=== PATIENT | female | born 1995 | race Caucasian/White ===

== ENCOUNTER 2022-04-27 10:47 | Outpatient (CLI) | payer BC, SELFPAY ==
--- NOTE | 2022-04-27 11:00 | CRLHL7_ITS ---
For Patients: As a result of the Cures Act, medical imaging exams and procedure reports are released immediately into your electronic medical record. You may view this report before your referring provider. If you have questions, please contact your health care provider. INDICATION: First trimester scan, establish dates. COMPARISON: None. TECHNIQUE: Real-time tsai-scale imaging of the pelvis was performed. FINDINGS: Sonographic imaging demonstrates a single living intrauterine gestation. The embryo demonstrates a regular cardiac rate measuring 157 beats per minute. The embryo`s crown-rump length measurement of 5.4 cm corresponds to a gestational age of 12 weeks 0 days with a sonographic due date of 11/09/2022. There is a normal-appearing yolk sac. There are no gross abnormalities noted within the embryo at this early state of development. The gestational sac has a normal appearance. There is no evidence of a perigestational hemorrhage. The amount of fluid within the sac appears appropriate for gestational age. The cervix is closed. The myometrium appears normal. The ovaries are of normal size. 1.6 cm corpus luteal cyst left ovary. 4.3 cm simple right ovarian cyst. There are no suspicious fluid collections noted in the cul-de-sac. IMPRESSION: Normal first trimester OB ultrasound exam. Gestational age calculated at 12 weeks 0 days with a sonographic due date of 11/09/2022. Dictated by Landry Phan MD @ 04/27/2022 12:03:27 PM (Electronically Signed)
== END 2022-04-27 10:48 | disposition home or self-care (01) ==
LOC: US 10:48
PROVIDERS: PCP Physician Assistant; Visit Provider Physician Assistant
DX: Z34.91 Encounter for supervision of normal pregnancy, unspecified, first trimester (principal); Z36.89 Encounter for other specified antenatal screening
CPT/HCPCS: 76801; 86592; 86703; 86762; 86787; 86803; 86850; 86900; 86901; 87086; 87340; 87491; 87591

== ENCOUNTER 2022-06-28 12:47 | Outpatient (CLI) | payer BC, SELFPAY ==
--- NOTE | 2022-06-28 13:00 | CRLHL7_ITS ---
For Patients: As a result of the Century Cures Act, medical imaging exams and procedure reports are released immediately into your electronic medical record. You may view this report before your referring provider. If you have questions, please contact your health care provider. INDICATION: Evaluate anatomy. COMPARISON: 04/27/2022 TECHNIQUE: Real time tsai scale imaging of the fetus was performed as well as color Doppler analysis of the umbilical vessels. FINDINGS: Sonographic imaging demonstrates a single living intrauterine gestation. Fetus demonstrates a regular cardiac rate of 155 beats per minute. Fetus has a breech position. The placenta lies posteriorly without evidence of placenta previa. The edge of the placenta is located 4.2 cm from the internal cervical os. Amniotic fluid volume appears normal. Single deepest vertical pocket: 5.3 cm. The cervix is closed and measures 3.9 cm in length. The composite ultrasound gestational age is calculated at 20 weeks 6 days with an estimated sonographic due date of 11/09/2022. The estimated weight is 422 grams which lies at the greater than 97th %. The following biometric measurements were obtained: Biparietal diameter: 5.0 cm/21 weeks 0 days 86th% Head circumference: 18.6 cm/21 weeks 0 days 82nd% Abdominal circumference: 17.3 cm/22 weeks 2 days 96th% Femur length: 3.4 cm/20 weeks 4 days 63rd% The HC/AC ratio measures: 1.08 range (1.06-1.25) On anatomic survey, there is a normal appearance of the cerebral ventricles, cavum septi pellucidi, cisterna magna and cerebellum. The nose, lips, and facial profile appear normal. The cervical, thoracic and lumbar spine are well visualized and appear normal. There is a normal four-chamber heart view and the left and right ventricular outflow tracts appear normal. The diaphragm and stomach appear normal. The bladder is normal. Bilateral pelviectasis is present measuring 5.8 millimeters and 6.4 millimeters. There is a normal three-vessel cord and cord insertion site. The four extremities appear normal. IMPRESSION: Sonographic gestational age 20 weeks 6 days and sonographic due date 11/09/2022. Sonographic age 6 days ahead of the clinical age. Estimated weight greater than 97th percentile. Abdominal circumference 96th percentile. Bilateral renal pelviectasis measuring 5.8 and 6.4 millimeters. Follow up in the 3rd trimester recommended. Remainder of the anatomic survey is normal. Maternal right adnexal cyst is present. This measures approximately 7.2 x 4.3 x 4.9 cm Dictated by Landry Phan MD @ 06/29/2022 7:06:15 AM (Electronically Signed)
== END 2022-06-28 12:48 | disposition home or self-care (01) ==
LOC: US 12:48
PROVIDERS: Visit Provider Physician Assistant
DX: Z34.92 Encounter for supervision of normal pregnancy, unspecified, second trimester (principal); Z3A.20 20 weeks gestation of pregnancy
CPT/HCPCS: 76805

== ENCOUNTER 2022-08-23 12:50 | Outpatient (CLI) | payer BC, SELFPAY ==
--- NOTE | 2022-08-23 13:00 | CRLHL7_ITS ---
For Patients: As a result of the Century Cures Act, medical imaging exams and procedure reports are released immediately into your electronic medical record. You may view this report before your referring provider. If you have questions, please contact your health care provider. INDICATION: Follow-up renal pelviectasis COMPARISON: 06/28/2022 TECHNIQUE: Real time tsai scale imaging of the fetus was performed. FINDINGS: Sonographic imaging demonstrates a single living intrauterine gestation. Fetus demonstrates a regular cardiac rate of 138 beats per minute. Fetus has a vertex position. The placenta lies posteriorly. Amniotic fluid volume appears normal. Single deepest vertical pocket: 5.4 cm. Pelviectasis is present on the right measuring 1 cm. On the left, the left renal pelvis measures 5.1 millimeters. IMPRESSION: Right renal pelviectasis measuring 1 cm. Left renal pelviectasis measuring 5.1 millimeters. Less than 7 millimeters is considered normal at this gestational age. follow-up recommended. Dictated by Landry Phan MD @ 08/24/2022 10:05:16 AM (Electronically Signed)
== END 2022-08-23 12:51 | disposition home or self-care (01) ==
PROVIDERS: PCP Physician Assistant; Visit Provider Physician Assistant
DX: Z34.90 Encounter for supervision of normal pregnancy, unspecified, unspecified trimester (principal)
CPT/HCPCS: 76816; 86592

== ENCOUNTER 2022-09-23 12:05 | Outpatient (CLI) | payer BC, SELFPAY ==
--- NOTE | 2022-09-23 12:15 | CRLHL7_ITS ---
For Patients: As a result of the Century Cures Act, medical imaging exams and procedure reports are released immediately into your electronic medical record. You may view this report before your referring provider. If you have questions, please contact your health care provider. INDICATION: EFW FOLLOW UP RENAL PELVIECTASIS TECHNIQUE: Real time tsai scale imaging of the fetus was performed. COMPARISON: 06/28/2022, 08/23/2022 FINDINGS: Sonographic imaging demonstrates a single living intrauterine gestation. Fetus demonstrates a regular cardiac rate of 141 beats per minute. Fetus has a tony breech. The placenta lies posterior. Amniotic fluid volume appears normal and there is a single deepest pocket of 5.0 cm. The estimated weight is 2463gm which lies at the 95th %. On the prior OB ultrasound dated 06/28/2022 the estimated weight was at the greater than 97th percentile. BPD greater than 97th percentile. HC 95th percentile. AC greater than 97th percentile. FL 42nd percentile. Bilateral pelviectasis measuring 6.6 millimeters on the left and 7.0 millimeters on the right. The fetus was active and demonstrated normal breathing movements. There was normal flexion and extension of the trunk and extremities. IMPRESSION: Normal biophysical profile score 8/8. Sonographic gestational age 34 weeks 5 days and sonographic due date 10/30/2022. Sonographic age 16 days ahead of the clinical age. Estimated weight 95th percentile. Abdominal circumference greater than 97th percentile. Mild pelviectasis is present measuring up to 7 millimeters. This is upper limits of normal and consider follow-up. Dictated by Landry Phan MD @ 09/23/2022 12:51:08 PM (Electronically Signed)
== END 2022-09-23 12:06 | disposition home or self-care (01) ==
LOC: US 12:06
PROVIDERS: Visit Provider Obstetrics & Gynecology
DX: O28.3 Abnormal ultrasonic finding on antenatal screening of mother (principal); Z3A.34 34 weeks gestation of pregnancy
CPT/HCPCS: 76816

== ENCOUNTER 2022-10-21 12:16 | Outpatient (CLI) | payer BC, SELFPAY ==
--- NOTE | 2022-10-21 12:15 | CRLHL7_ITS ---
For Patients: As a result of the Century Cures Act, medical imaging exams and procedure reports are released immediately into your electronic medical record. You may view this report before your referring provider. If you have questions, please contact your health care provider. INDICATION: Third trimester scan, evaluate growth. COMPARISON: 09/23/2022 TECHNIQUE: Real time tsai scale imaging of the fetus was performed. FINDINGS: Sonographic imaging demonstrates a single living intrauterine gestation. Fetus demonstrates a regular cardiac rate of 159 beats per minute. Fetus has a vertex position. The placenta lies right posterior. Amniotic fluid volume appears normal and there is a single deepest vertical pocket: 6.7 cm. The estimated weight is 3469gm which lies at the 94th %. On the prior OB ultrasound exam dated 09/23/2022 the estimated weight was at the 95th%. The HC/AC ratio measures 0.99 range (0.88-1.06). BPD/HC/AC greater than 97th percentile. FL 8th percentile. IMPRESSION: Bilateral renal pelviectasis measuring 8.6 millimeters on the right and 4.5 millimeters on the left. follow-up regarding the right renal pelviectasis recommended. Right adnexal simple cyst measuring 8.6 x 6.6 x 7.4 cm, previously measuring 7.2 x 4.3 x 4.9 cm. Sonographic gestational age 38 weeks 3 days and sonographic due date 11/01/2022. Sonographic age 2 weeks at of the clinical age. Estimated weight 94th percentile. Abdominal circumference, HC and BPD greater than 97th percentile. Dictated by Landry Phan MD @ 10/21/2022 1:41:53 PM (Electronically Signed)
== END 2022-10-21 12:17 | disposition home or self-care (01) ==
LOC: US 12:16
PROVIDERS: Visit Provider Obstetrics & Gynecology
DX: Z34.93 Encounter for supervision of normal pregnancy, unspecified, third trimester (principal); Z3A.36 36 weeks gestation of pregnancy
CPT/HCPCS: 76816; 82728

== ENCOUNTER 2022-10-21 13:50 | Outpatient (CLI) | payer BC, SELFPAY | END 2022-10-21 13:51 | disposition home or self-care (01) | LOC: NFLDREF 13:51 | PROVIDERS: Visit Provider Obstetrics & Gynecology | DX: Z34.93 Encounter for supervision of normal pregnancy, unspecified, third trimester (principal); Z3A.36 36 weeks gestation of pregnancy | CPT/HCPCS: 82728; 87081; 87653 ==

== ENCOUNTER 2022-11-05 13:00 | Outpatient (RCR) | payer BC, SELFPAY ==
[2022-11-01 14:53] VITALS: BP 128/69; PULSE 81; RESP 18; TEMP 36.4; O2SAT 99
--- NOTE | 2022-11-01 15:13 | URNOTE ---
Request received for authorization for Feraheme ([id number]). Prior authorization is approved for Feraheme 510mg/17ml vial, total 1020mg. Per [facility] Ref#[id number]. Date range 10/28/2022 to 01/26/2023.
[2022-11-01] MEDS: ferumoxytoL 510 MG in 0.9 % SODIUM CHLORIDE 250 ml 250 ML 540 MG IVPB (15:27)
[2022-11-01 15:59] VITALS: BP 112/67; PULSE 78; RESP 16; TEMP 36.4; O2SAT 98
[2022-11-05 12:59] VITALS: BP 94/67; PULSE 97; RESP 16; TEMP 36.6; O2SAT 97
[2022-11-05] MEDS: ferumoxytoL 510 MG in 0.9 % SODIUM CHLORIDE 250 ml 250 ML 1068 MG IVPB (13:15)
[2022-11-05 13:38] VITALS: BP 107/64; PULSE 97
[2022-11-05 14:20] VITALS: BP 112/78
== END 2023-04-30 23:59 | disposition home or self-care (01) ==
LOC: CCIC 13:00
PROVIDERS: Visit Provider Obstetrics & Gynecology
DX: D50.9 Iron deficiency anemia, unspecified (principal)
CPT/HCPCS: 96365; 96374; J7050; Q0138

== ENCOUNTER 2022-11-08 05:05 | Inpatient (IN) | payer BC, SELFPAY ==
[2022-11-08] VITALS (28 sets, daily range): BP systolic 105–126; BP diastolic 56–78; PULSE 54–85; RESP 16–18; TEMP 36.3–37.3; O2SAT 95–100; BMI 34.6
[2022-11-08] MEDS: LACTATED RINGERS 1000 ML 1,000 ML 125 ML IV ×2 (06:20→09:24)
[2022-11-08 06:25] LABS: Hemoglobin* 9.6 gm/dL (12.0-16.0)
--- NOTE | 2022-11-08 07:14 | P.LDBA_ITS ---
Subjective History of Present Illness Time Seen by Provider: : Date Seen: 11/08/22 Narrative: Patient is being admitted to Labor and Delivery for scheduled primary delivery. She is a 27 year old at weeks gestation. Her full history and physical was dictated by myself on 10/29/2022. Please see this for details. No interval changes to her health history since she was last seen in clinic. Patient denies vaginal bleeding, leakage of fluid. Minimal contractions. She also denies MONTALVO, n/v, RUQ pain, or visual abnormalities Endorses normal movement. OB - Problem Based A/P Additional Plan (1) Anemia complicating : Status: Acute (2) Right ovarian cyst: Status: Acute (3) History of fourth degree perineal laceration: Status: Acute (4) Family history of dwarfism: Problem details: father of baby with dwarfism Status: Acute (5) Pyelectasis of fetus on ultrasound: Status: Acute (6) Depression: Status: Acute (7) Anxiety: Status: Acute (8) : Status: Acute Plan - Will proceed with primary delivery due to history of 4th degree laceration and suspected macrosomia - Plan for right ovarian cystectomy as well - Hgb 9.6, plt 267 - CS Consent The patient was consented for section and blood. She understands that the three main categories of risk include bleeding, infection, and damage to whittaker rrounding structures. Regarding infection, she understands that we will be delivering appropriate antibiotics, however that the risk of infection following section still is approximately 5%. She understands that though the risk is very low that there is always a risk of damage to the bladder, uterus, ovaries, fallopian tubes, bowels, ureters, or even the fetus. She understands that most injuries can be addressed at the time of surgery, however, such an injury may require additional surgeries to fix. Lastly, she understands that a section carries a risk of bleeding, and that while this bleeding can be addressed with multiple medical and surgical modalities, that there is the possibility of needing a blood transfusion. She is starting at lower hemoglobin. She reports she would accept a blood transfusion understanding the risks of a 1/200,000 risk of Hepatitis and 1/2,000,000 risk of HIV as well as the risk of having an allergic reaction to the blood products. She further understands that this reaction is typically mild, however can be severe including respiratory distress and necessitating ICU-level care. Lastly, she understands that a section does increase risks for future pregnancies and deliveries including, but not limited to, the risk of uterine rupture or placenta accreta. OB Exam Physical Exam Vital signs: Temp Pulse Resp BP 98.1 F 74 16 118/64 11/08/22 06:15 11/08/22 05:24 11/08/22 06:15 11/08/22 05:24 Narrative: Physical exam: General: No acute distress Psych: Alert and oriented x3, full affect HEENT: Normocephalic, atraumatic Lungs: Unlabored breathing Neuro: No focal deficit. Mentating appropriately Abdomen: Gravid. Nontender. No rebound or guarding. Pelvic exam: Deferred
[2022-11-08] MEDS: CEFAZOLIN 2 GM INJ IVP (07:35)
[2022-11-08] MEDS: TRANEXAMIC ACID 100 MG/ML INJ 1000 MG IV (07:54)
--- NOTE | 2022-11-08 07:59 | W.ANESCHARGE ---
Anesthesia Charges Start Date/Time Anesthesia Start Date: 11/08/22 Anesthesia Start Time: 07:25 Stop Date/Time Anesthesia Stop Date: 11/08/22 Anesthesia Stop Time: 09:10
[2022-11-08] MEDS: KETOROLAC 30 MG/ML inj IVP ×3 (08:02→20:36)
--- NOTE | 2022-11-08 08:19 | W.ANESCHARGE ---
Anesthesia Charges Start Date/Time Anesthesia Start Date: 11/08/22 Anesthesia Start Time: 07:25 Stop Date/Time Anesthesia Stop Date: 11/08/22 Anesthesia Stop Time: 09:10
--- NOTE | 2022-11-08 09:09 | P.NB_ITS ---
Nerve Block Nerve Block Time Seen by Provider: 09:01 Date Seen: 11/08/22 Type of block requested by surgeon for post-operative analgesia: TAP Side: bilateral Time out performed: Yes Verification of patient name: Yes Verification of date of : Yes Site marking: site marked Name of person performing procedure: Gama Assistants, if any: Waqas Continuous monitoring Was continuous monitoring of O2 sat, B/P, environmental monitoring specialist, recorded every 15 minutes?: Yes Procedure Checklist: sterile prep, needles and gloves Ultrasound guided. Images saved: Yes Medications given in 5ml increments after negative aspiration: Marcaine %: 0.25 mL: 30 Needle gauge: 20 and Exparel mL: 10 Patient tolerated procedure well: Yes Additional comments: Needle noted adjacent to nerve Block Charges Block Charge (with Pro Fee): TAP Bilateral Use of Ultrasound Machine for Block: Yes- US Guidance/pain block
--- NOTE | 2022-11-08 09:25 | PM.OBPRCCS ---
Procedure Time Seen by Provider: 09:25 Date of procedure: 11/08/22 Procedure Done: Global Will [facility] bill your pro fee for this procedure?: Yes Blood Loss Measurement Type: QBL Procedure Description: DELIVERY BY SECTION Date of Service: 11/08/2022 Delivery time: 751 Summary: Admitted for scheduled primary delivery at 39 weeks 0 days, Primary Lower uterine transverse section and right ovarian cystectomy, Pfannenstiel, Closed with sutures, QBL 778 cc, No complications, Findings: Normal uterus, and bilateral fallopian tubes. Normal left ovary. 7 cm simple cyst on right ovary and a 1 cm nodule on the right ovarian surface. 9, 9, weight 4545 g. Primary Indication: History of 4th degree laceration Suspected macrosomic fetus Known 7 cm right ovarian cyst Procedures: Primary Lower uterine transverse section Right ovarian cystectomy Right ovarian nodule excision Specimens Removed: Placenta Right ovarian cyst Right ovarian nodule Surgeon: Demetrice Aleman MD Crew Supervisor: REINA Lawler Anesthesia: Spinal and TAP block Report: Prophylactic antibiotic, 2 g of Ancef was given before patient was taken to OR. After arrival to the operating room patient was placed in the supine position with left lateral tilt after administration of spinal anesthesia. Laparotomy A pfannenstiel incision was made through the anterior abdominal wall with #10 scalpel approximately 2 cm above the pubic symphysis. The incision was extended sharply with the #10 scalpel through the subcutaneous tissue to the level of fascia. The fascia was entered sharply with a #10 scalpel (Pfannenstiel) in the midline and extended in semi-elliptical fashion and superiorly with digits. The rectus muscles were in the midline bluntly with digits. The peritoneum was then entered bluntly. The peritoneal incision was then extended superiorly and inferiorly under direct visualization with care being taken to avoid bladder and bowel. No adhesions were noted. The peritoneal incision was enlarged bluntly by lateral traction from the surgeon's and first officer and flight instructor's hand. Mustapha retractor was inserted into the abdomen. Delivery A bladder flap was not developed as bladder was far away from lower uterine segment. A low transverse hysterotomy was made then with #10 scalpel and extended laterally and cephalad with fingers in a low transverse fashion with Manu Conley technique with care being taken to avoid injury to the fetus. The amniotic cavity (membrane) was then entered with spontaneous rupture of membrane, and the amniotic fluid was noted to be clear, fetus was delivered cephalic. With delivery of the baby, no extension was noted. Placenta was delivered spontaneously with steady traction on cord and manual separation of placenta from uterine wall. Closure Uterine cavity was cleaned after placental delivery with lap sponge x 2. The hysterotomy was closed in one layer with stitches using 0 vicryl with continuous locking stitches. A 2nd imbricating layer was placed with 0 Monocryl. Hemostasis was achieved as needed with electrocautery. The ovaries/tubes/uterine surface were evaluated. They were found to be as stated above. Attention was then turned towards the right ovarian cystectomy. DeBakey pickups was used to tent up the ovarian corpus away from the cyst wall and Metzenbaum was used to make a small incision. The cyst wall was identified and was removed using sharp and blunt dissection with countertraction. Right ovarian cyst was removed intact. The ovarian bed was then irrigated and electrocautery was used to achieve hemostasis. The ovarian does space was closed with 3-0 Vicryl in a continuous manner x2. A small nodule on the right ovarian surface was noted (near the right fimbria). This was removed with the hand held LigaSure and sent to pathology. Hemostasis was obtained on all operative surfaces as needed with electric cautery. Mustapha retractor removed and hemostasis was confirmed again. Fascia was closed with running stitches using 0 Vicryl. Hemostasis was checked for and found to be adequate. The subcutaneous layer was closed with running 2-0 chromic sutures. The skin was closed with monocryl subcuticular sutures . The incision was cleaned and covered with Exofin and Mepilex dressing. The procedure was considered terminate at this time. Intraoperative Complications: None QBL: 778 cc Uterotonics: 40 units of Pitocin, 1 g of TXA Disposition: The patient tolerated the procedure well. She was recovered in obstetric PACU for close monitoring in stable condition, with a contracted uterus and normal transvaginal bleeding. The was sent to mother?s bedside/PACU. The placenta, right ovarian cyst, and right ovarian nodule was sent to pathology . Infant total score - 1 minute: 9 total score - 5 minute: 9
[2022-11-08] MEDS: ACETAMINOPHEN 500 MG TABLET 1000 MG PO ×2 (10:48→23:26)
[2022-11-08] MEDS: FERROUS SULFATE 325 MG TABLET 650 MG PO (17:18)
[2022-11-08] MEDS: DOCUSATE SODIUM 100 MG CAPSULE PO (17:18)
[2022-11-08] MEDS: FLUOXETINE HCL 10 MG CAPSULE 60 MG PO (21:21)
[2022-11-08] MEDS: OXYCODONE 5 MG TABLET PO (23:27)
[2022-11-09] VITALS (9 sets, daily range): BP systolic 110–125; BP diastolic 70–79; PULSE 70–77; RESP 16; TEMP 36.4–36.7; O2SAT 96–98
[2022-11-09] MEDS: KETOROLAC 30 MG/ML inj IVP ×3 (02:47→14:48)
[2022-11-09 07:06] LABS: Hemoglobin* 9.1 gm/dL (12.0-16.0)
[2022-11-09] MEDS: DOCUSATE SODIUM 100 MG CAPSULE PO (08:13)
--- NOTE | 2022-11-09 08:13 | PM.OBPNVD1 ---
OB - PN:Subj Subjective Date Seen: 11/09/22 Patient comments OB post-: no complaints, pain well controlled and tolerating diet infant status: and doing well feeding status: exclusively Narrative: Day 1:? Vaginal Delivery at 39 and 0/7 weeks.? ?? Complications:? none? The patient feels well.? The pain is well controlled with current medications.? She has no new complaints.? Urinary output is adequate and she is voiding without difficulty.? Has a good appetite and is tolerating a general diet. She doesn't feel that she is yet passing flatus, and has not had a bowel movement.? Has scant amount of rubra lochia.? She is ambulating well.?Dressing was removed and incision is well approximated without redness or drainage with a glue closure. There is a small amount of bruising surrounding most of the incision. Hgb 9.1. she is already on PO iron supplementation. She denies feeling weak, lightheaded or dizzy. OB - PN: Obj Exam Physical Exam: Vital signs: Temp Pulse Resp BP Pulse Ox O2 Del Method 97.5 F L 77 16 117/79 98 Room Air 11/09/22 08:04 11/09/22 08:04 11/09/22 08:04 11/09/22 08:04 11/09/22 08:04 11/09/22 08:04 Narrative: GENERAL APPEARANCE:? normal affect, alert, no distress? MOOD:? appropriate? CHEST:? clear to auscultation and percussion? HEART:? regular rate and rhythm? ABDOMEN:? soft, non-tender the uterine fundus is U/2 and is appropriate for the stage of recovery.? INTEGUMENT: incision dressing removed. incision well approximated with glue closure without redness or drainage. There is a small amount of bruising around the incision.? EXTREMITIES:? normal and no edema? Urinary Catheter Management: Urethral: Cath placed during this visit: yes Urethral indwelling: No Reason for continuing: surgical procedure Insertion date: 11/08/22 Insertion time: 07:40 OB - PN: Obj Data Labs Labs: Laboratory Results - last 24 hr 11/09/22 06:49 Hgb 9.1 L OB - PN: A/P Delivery Assessment and Plan (1) Depression: Status: Acute (2) Anxiety: Status: Acute (3) care following delivery: Status: Acute (4) Lactating mother: Status: Acute (5) Anemia, : Status: Acute Plan day: 1 Plan: routine care Comments: Anticipate discharge home tomorrow.
[2022-11-09] MEDS: ACETAMINOPHEN 500 MG TABLET 1000 MG PO (11:52)
[2022-11-09] MEDS: BUSPIRONE 10 MG TABLET PO (20:54)
[2022-11-09] MEDS: FLUOXETINE HCL 10 MG CAPSULE 60 MG PO (20:55)
[2022-11-09] MEDS: IBUPROFEN 600 MG TABLET PO (20:55)
[2022-11-10 02:56] VITALS: BP 117/78; PULSE 64; RESP 16; TEMP 37.1; O2SAT 95
[2022-11-10] MEDS: IBUPROFEN 600 MG TABLET PO ×2 (02:58→11:49)
--- NOTE | 2022-11-10 07:54 | PM.OBDSVD1 ---
DS: Providers Provider Date Seen: 11/10/22 Date of admission: 11/08/22 05:05 Primary care physician: Not a Local Provider Admitting Clinician: Demetrice Aleman MD Attending Physician on discharge: Arianna Ryan APRN, CNM DS: Diagnosis Discharge Diagnosis (1) care and examination immediately after delivery: Status: Acute (2) Lactating mother: Status: Acute (3) Status post section: Status: Acute (4) Anemia, : Status: Acute Exam Narrative: Exam Narrative: GENERAL APPEARANCE:? normal affect, alert, no distress MOOD:? appropriate CHEST:? clear to auscultation HEART:? regular rate and rhythm ABDOMEN:? soft, non-tender the uterine fundus is At Umbilicus, Midline and is appropriate for the stage of recovery. EXTREMITIES:? normal and no edema INCISION: Healing well, no surrounding erythema, abnormal induration or discharge Const: Vital Signs, click to edit/add: Vital Signs - 24 hr 11/09/22 08:04 11/09/22 16:23 11/09/22 20:52 Temperature 97.5 F L 98.0 F 97.5 F L Pulse Rate [Pulse Oximeter] 77 77 74 Respiratory Rate 16 16 16 Blood Pressure [Ri ght Arm] 117/79 114/74 125/78 Pulse Oximetry 98 98 96 Oxygen Delivery Me thod Room Air Room Air Room Air 11/10/22 02:56 Temperature 98.8 F Pulse Rate [Pulse Oximeter] 64 Respiratory Rate 16 Blood Pressure [Ri ght Arm] 117/78 Pulse Oximetry 95 Oxygen Delivery Me thod Room Air Documenting provider has reviewed patient's vital signs: yes OB - DS: Summary Hospital Course Hospital Course: Maribell is a 27 y.o. G 2 P 2 who was admitted to [facility] for primary section with history of a 4th degree. ?She had a section complicated by anemia. The patient feels well. ?The pain is well controlled with current medications. ?She has no new complaints. ?She is breast feeding and reports things are going well. the patient has done well.? Vitals have been stable.? She has remained afebrile.? Has a good appetite, is tolerating a general diet. ?She is voiding without difficulty.? She is passing gas and has not had a bowel movement.? She is ambulating and denies any dizziness.? Has small amount of rubra lochia. Problems: History of depression with current Anxiety and Depression, Anemia plan: Discharge home with baby. Follow up in 2 weeks and 6 weeks. , may see if needed Hgb 9.1. Iron supplement started and to continue upon dicharge. Hx of pp depression. Pt desires referral to mental health counselor, pt is uncertain where she would like. I will place a referral to [facility]. She will call if she desires a different site. Peripartum Data Infant delivery method: Primary C/S; Non-Labored Laceration description: None Procedures: Procedures Operation Date: 11/08/22 07:15 Actual Procedure Side Surgeon p Primary Section, Ovarian Cystectomy Demetricegarcia Aleman MD complications: none [place] Gender: Male Infant Discharge Plan: Home Status at Discharge Functional status at discharge: independent ambulation Overall status at discharge: patient is progressing back to baseline Time Spent with Patient Time attestation: Total time spent providing and/or coordinating discharge services: Time spent: Less than 30 minutes Discharge Plan Discharge Disposition: Home, Self-Care Date of Admission: 11/08/22 05:05 Attending Provider on Discharge: Arianna Ryan Primary Care Provider: Provider,Not a Local Condition: Stable Anticipated Discharge Date/Time: 11/10/22 12:00 Discharge Medications: New acetaminophen 500 mg Tablet 1,000 mg PO Q6H PRN (Reason: Pain) Qty: 0 0RF docusate sodium 100 mg Capsule 100 mg PO DAILY Qty: 90 0RF ferrous sulfate 325 mg (65 mg iron) Tablet 650 mg PO Q48H Qty: 90 0RF ibuprofen 600 mg Tablet 600 mg PO Q6H PRN (Reason: Pain) Qty: 60 0RF oxycodone 5 mg Tablet 5 - 10 mg PO Q4H PRN (Reason: Pain) Qty: 12 0RF Continued buspirone 10 mg tablet 10 mg PO BID Qty: 120 0RF fluoxetine 60 mg tablet 30 mg PO QDAY prenat.vits,leidy,urw-kkks-pxwkz Tablet 1 tab PO QDAY Discontinued ferrous fumarate 325 mg (106 mg iron) tablet 325 mg PO QDAY Discharge Orders: Discharge Order (Routine); Ordered 11/10/22 Ordered By: Arianna Ryan Patient Education: OB Over the Counter Medication Information, OB Vaginal/Breast Feeding Additional Instructions: Discharge instructions were reviewed with the patient including signs and symptoms of infection and home going medications Lifting Restrictions: 20 pounds for 6 weeks No not submerge incision under water X 2 weeks? Nothing vaginally for 6 weeks: no tampons or intercourse Do not drive while taking narcotic pain medication(s) Off Work or School for 8 weeks 2-week visit: incision check, discuss infant feeding concerns, review control options and screen for anxiety/depression. 6-week visit for an annual exam. consultation services are available to all mothers and babies for the first year after delivery.? To make an appointment, please call [phone]. Follow Up Appointments: [facility] [Provider Group] Forms: [employer])th Info Instructions
[2022-11-10] MEDS: FERROUS SULFATE 325 MG TABLET 650 MG PO (07:56)
[2022-11-10] MEDS: DOCUSATE SODIUM 100 MG CAPSULE PO (07:57)
[2022-11-10] MEDS: BUSPIRONE 10 MG TABLET PO (07:57)
[2022-11-10 08:00] VITALS: BP 117/80; PULSE 71; RESP 16; TEMP 36.4; O2SAT 97
== END 2022-11-10 13:25 | disposition home or self-care (01) | DRG 540 ==
PROVIDERS: Admitting Provider Obstetrics & Gynecology; Visit Provider Obstetrics & Gynecology
PROC: 10D00Z1 Extraction of Products of Conception, Low, Open Approach (ICD-10-PCS; CPT 59514; principal; 2022-11-08 07:15)
DX: O36.63X0 Maternal care for excessive fetal growth, third trimester, not applicable or unspecified (principal); O34.83 Maternal care for other abnormalities of pelvic organs, third trimester; N83.201 Unspecified ovarian cyst, right side; O99.02 Anemia complicating childbirth; D64.9 Anemia, unspecified; O99.344 Other mental disorders complicating childbirth; F32.A Depression, unspecified; F41.9 Anxiety disorder, unspecified; Z3A.39 39 weeks gestation of pregnancy; Z37.0 Single live birth; G89.18 Other acute postprocedural pain
CPT/HCPCS: 01961; 36415; 64488; 76942; 85018; 85025; 86850; 86900; 86901; 88305; 88307; 96365; 96374; A9270; C9290; J0665; J0690; J1885; J2274; J2371; J2405; J2590; J7050; J7120; Q0138

== ENCOUNTER 2022-11-26 10:21 | Outpatient (CLI) | payer BC, SELFPAY ==
--- NOTE | 2022-11-26 17:00 | P.LACCB_ITS ---
Consult Note - Mom Date of Visit Date of visit: 11/26/22 industrial methods consultant: Rebekah Bardales Visit Code: Visit Patient's Information Phone number: [phone] : 2 Para: 2 Allergies No Known Allergies Allergy (Unknown, Verified 11/05/22 11:05) Mother's Medical History: Medical History (Updated 11/13/22 @ 00:00 by Background Daemon) Severe depression ?F53.0 - depression (ICD-10) Delivery Information Delivery type: Primary C/S; Labored Weeks Gestation: 39.0 Gestational Age: LGA Weight: 4.545 kg Discharge Weight: 4.252 kg Baby's Information Baby's Age at Visit: 18 days Baby's Provider or Clinic: Dr. Power Jaundice: No Reason for Consult Reason for Consult: concern for transfer, pain with latch Past Experience Past Experience: Yes (nursed her first child, had difficulty with supply) Current Frequency of Day Feedings: every 2 - 3 hours Frequency of Night Feedings: dad offers two bottles overnight Both Breasts: Yes Suck: not aggressive Latch: appears wide Length of Time: can last up to 60 minutes Pumping Pumping: Yes (will use her Haakaa or pump a few times/day to have EBM for overnight) Quantity Pumped: 2 - 2.5 oz total Supplementing EMB Supplement: Yes (2 - 2.5 oz twice overnight) Formula Supplement: No Baby Elimination Number of Wet Diapers a Day: almost every feeding Number of BM a Day: once/day or every other day, yellow and seedy Breast/Nipple Condition Breast Information: WNL Maternal Nipple Condition - Left: Common Nipple Maternal Nipple Condition - Right: Common Nipple Sore Nipples: Yes Onsite Pre-Feed weight: 4.266 kg Post-Feed weight: 4.288 kg Milk Transferred (mL): 22 Assessments/Interventions Assessments/Interventions: Met with mom and this now 18 day old ex- term LGA baby for consult. Mom reports was initially painful on the right side but now it's painful on both, reports nipple damage bilaterally. She's also not sure how much baby is transferring. Reports he latches but is not aggressive at the breast, states feeding sessions can last up to 60 minutes because he never seems to want to be finished. He's nursing every 2 - 3 hours during the day, recently dad has started giving him 1 - 2 bottles of EBM overnight so mom can get some sleep. She will pump or use her Haakaa after nursing during the day to collect the 2 - 2.5 oz he has at each of those night feedings. Breasts WNL- symmetrical with rounded lower quadrants, intramammary distance is < 1.5 inches. Nipples are everted and don't flatten or retract on compression. Nipple damage has healed but it's evident where the fissures were. Mom reports she had a difficult time with her milk supply when nursing her first child, states she had positive breast changes during this . Also reports her nipples sometimes turn white or dark purple after nursing and she's become more sensitive to temperature changes. Baby hasn't really gained much weight since his last visit on 11/12 (7grams/day) and he's 6% below BW at 18 DOL. Mom denies any caput/cephalohematoma at delivery. States he was favoring turning his head to the right, but that seems to have resolved. Baby has equal ROM in extremities. His upper frenulum is tight, lip is difficult to flange and gums lola. He has a fairly strong suck on a finger and the tongue comes over the gum line. He does have some trouble with lateralization and he doesn't raise it very high when crying. Lower frenulum wasn't visualized. Mom latched baby to both sides and he appeared to have a fairly wide latch but mom was uncomfortable. He also didn't maintain the latch and slipped to a more shallow latch after a few minutes. This was despite mom's good positioning of baby, support of breast, and aiming her nipple for his nose. Baby also started out nutritively suckling, but after about a minute was more pacifying despite mom bugging him, trying breast compression, and switching sides. After about a 30 minute session he transferred 22 ml. Mom was shown, and she practiced, a series of exercises to try this next week to see if they help baby coordinate his tongue movements and get a little stronger at the breast. Plan: 1. Continue to nurse baby ALD, offering both sides and trying to keep him nutritively suckling. OK to keep sessions to 20 - 30minutes. 2. Baby will need to be supplemented with at least 2 oz after every nursing attempt. Reviewed paced feeding. 3. Suggested mom start pumping more consistently (she has a new Spectra). Goal is 4 times (up to 6 if possible) daily for this next week. 4. Reviewed vasospasm s/s and gave handout with ideas she can try: better latch, stay warm while nursing, keep nipple warm afterwards, massage, stretches, supplements. 5. Review LA video with dad and try to do the exercises 3 - 5 times/day for this next week. 6. Reviewed handouts on a few herbs mom could try to boost supply. 7. Will f/u for a pre and post feeding weight on 12/03. Could consider second opinion from CHARI [facility] or pediatric dentist. Meds Home Medications and Allergies Home Medications Medication Instructions Recorded Confirmed Type fluoxetine 60 mg tablet 30 mg PO QDAY 04/27/22 11/08/22 History prenat.vits,leidy,hma-mkod-gtnlx 1 tab PO QDAY 06/14/22 11/08/22 History Allergies Allergy/AdvReac Type Severity Reaction Status Date / Time No Known Allergies Allergy Unknown Verified 11/05/22 11:05
== END 2022-11-26 10:22 | disposition home or self-care (01) ==
LOC: OB LAC 10:23
PROVIDERS: PCP Physician Assistant Medical; Visit Provider Physician Assistant
DX: Z39.1 Encounter for care and examination of lactating mother (principal)
CPT/HCPCS: 99211

== ENCOUNTER 2023-01-07 13:29 | Outpatient (CLI) | payer BC, SELFPAY | END 2023-01-07 13:30 | disposition home or self-care (01) | LOC: FRMREF 13:31 | PROVIDERS: PCP Physician Assistant Medical; Visit Provider Registered Nurse | DX: Z39.2 Encounter for routine postpartum follow-up (principal) | CPT/HCPCS: 87086 ==

== ENCOUNTER 2023-08-25 11:28 | Outpatient (CLI) | payer BC, SELFPAY ==
--- OUTSIDE RECORDS SUMMARY | 2023-08-26 12:39 | XMS_ITS | Referral Summary ---
Author Name Unknown Organization [facility] Address [address] [place] [address]. [place] [address] Care Team Providers Care City Maintenance Manager Name Role Phone Unavailable Primary Care Provider Unavailabl e Social History Tobacco Use Types Packs/Day Years Used Date Smoking Tobacco: Never Assessed Adolescent Education Answer Date Record ed Getting School Help Needed Not on file 01/01 Sex and Gender Information Value Date Recorded Sex Assigned at Not on file Gender Identity Not on file Sexual Orientation Not on file Plan of Treatment Not on file Procedures Procedure Name Priority Date/Time Associated Diagnosis Comments ABSTRACT HIV Routine 06/14/2022 3:29 PM R DEVELOPER HEPATITIS C (HIM EXTERNAL RESULT) Routine 06/14/2022 3:29 PM R DEVELOPER from Last 3 Months or Most Recently Relevant to Health Maintenance Results * ABSTRACT HIV (06/14/2022 3:29 PM R DEVELOPER) HIV 1&2 EXT Non-Reacti ve [facility] Blood 06/14/2022 3:29 PM R DEVELOPER [facility] - 06/14/2022 3:29 PM R DEVELOPER [facility] LAB RESULT Provider Outside LAB - HIM EXTERNAL R ESULT [facility] [address] [place] [address], [facility] [phone] * Hepatitis C (HIM External Result) (06/14/2022 3:29 PM R DEVELOPER) Hep C HIM See Scanned Document [facility] 06/14/2022 3:29 PM R DEVELOPER [facility] - 06/14/2022 3:29 PM R DEVELOPER [facility] RESULT Provider Outside LAB - HIM EXTERNAL R ESULT [facility] [address] [place] [address], [facility] [phone] from Last 3 Months or Most Recently Relevant to Health Maintenance
--- OUTSIDE RECORDS SUMMARY | 2023-08-26 12:39 | XMS_ITS | Clinical Summary ---
Author Name Unknown Organization [facility] Address [place], [place] [address] Care Team Providers Care Slurry Mixer Name Role Phone [facility] Primary Care Provider + Allergies No known active allergies Medications Medication Sig Dispensed Refills Start Date End Date Status hydrOXYzine HCL (ATARAX) 25 mg tabletIndications:An xiety and depression,Severe episode of recurrent major depressive disorder, without psychotic features (HC) Take 1-2 Tablets (25-50 mg) by mouth every 8 hours if needed for Anxiety. 30 Tablet 3 05/12/2021 Active FLUoxetine (PROZAC) 20 mg capsuleIndications:A nxiety and depression,Severe episode of recurrent major depressive disorder, without psychotic features (HC) Take 1 Capsule (20 mg) by mouth every morning. Take along with 40 mg capsule for total of 60 mg daily. 90 Capsule 1 08/24/2022 Active FLUoxetine (PROZAC) 40 mg capsuleIndications:A nxiety and depression,Severe episode of recurrent major depressive disorder, without psychotic features (HC) Take 1 Capsule (40 mg) by mouth every morning. Take along with 20 mg capsule for total of 60 mg daily. 90 Capsule 1 08/24/2022 Active busPIRone (BUSPAR) 10 mg tabletIndications:An xiety and depression Take 1 Tablet (10 mg) by mouth two times daily. 60 Tablet 08/24/2022 Active Active Problems Problem Noted Date Diagnosed Date Severe episode of recurrent major depressive disorder, without psychotic features 05/12/2021 Anxiety and depression 05/22/2018 Comments Yes Immunizations Name Administration Dates Next Due COVID-19 vaccine (Moderna 100mcg/0.5mL) RUY TEE 04/27/2021 COVID-19 vaccine (WiserTogether-Bio NTech 30mcg/0.3mL) PF, MDV 08/01/2020,07/12/2020 DTaP 10/27/1998,01/27/1995 DTaP-HIB (TriHIBIT) 04/07/1994,02/09/1994,1993 Hepatitis B (Peds) 12/05/2006,10/13/2005, 003 Hib Conjugate, Unspecified 01/27/1995 Inactivated Polio Vaccine 10/27/1998,,02/09/1994,1993 Influenza, IIV4 04/27/2022,12/23/2020 Influenza, IIV4 (=>6mos) MDV 01/15/2020 Influenza,CCIIV4 PRESERV FREE 12/26/2018 MMR 06/23/2020,10/27/1998,01/27/1995 Oral Polio Vaccine 10/27/1998 Polio Virus, Unspecified 04/07/1994,02/09/1994,0 1993 Tdap 04/17/2020,10/13/2005 Varicella Vaccine 12/09/2009,11/13/2002 Family History Medical History Relation Name Comments Good Health Brother x 2 Good Health Daughter Diabetes Father Cervical cancer Maternal Aunt Alcoholism Maternal Grandfather Cervical cancer Maternal Grandmother Good Health Mother Emphysema Paternal Grandfather smoker Good Health Paternal Grandmother Good Health Sister Relation Name Status Comments Brother x 2 Alive Daughter Alive Father Alive Maternal Aunt Maternal Grandfather Maternal Grandmother Mother Alive Paternal Grandfather Paternal Grandmother Alive Sister Alive Social History Tobacco Use Types Packs/Day Years Used Date Smoking Tobacco: Never Smokeless Tobacco: Never Alcohol Use Standard Drinks/Week Comments Not Currently 0 (1 standard drink = 0.6 oz pure alcohol) rarely- A couple times a year. PHQ-2 Answer Date Recorded PHQ-2 TOTAL SCORE 4 08/24/2022 Social Connections Answer Date Recorded Frequency of Communication with Friends and Fami ly 0 08/24/2022 Financial Resource Strain Answer Date R ecorded Difficulty of Paying Living Expenses 3 08/24/2022 Difficulty of Paying Living Expenses Not on file 08/24/2022 Food Insecurity Answer Date Recorded Worried About Running Out of Food in the Last Ye ar 1 08/24/2022 Transportation Needs Answer Date Record ed Lack of Transportation (Medical) 1 08/24/2022 Housing Stability Answer Date Recorded Unable to Pay for Housing in the Last Year 1 08/24/2022 Comments Yes Sex and Gender Information Value Date Recorded Sex Assigned at Not on file Gender Identity Not on file Sexual Orientation Not on file Obstetrics History Para Term AB IAB SAB Ectopic Multiple Livin g Live Births 1 Date Outcome GA Total Labor Labor/2nd/3rd Weight Sex Delivery Anes PTL Whitney A1 A5 Name Cl in Current Last Filed Vital Signs Vital Sign Reading Time Taken Comments Blood Pressure 120/64 08/24/2022 3:36 PM CDT Pulse 68 05/12/2021 1:59 PM 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 Temperature - - Respiratory Rate - - Oxygen Saturation - - Inhaled Oxygen Concentration - - Weight 98 kg (216 lb) 08/24/2022 3:36 PM CDT Height 172.1 cm (5' 7.75) 08/24/2022 3:36 PM CD T Body Mass Index 33.09 08/24/2022 3:36 PM CDT Plan of Treatment Health Maintenance Due Date Last Done Comments HIV for age 15-65 2008 Hepatitis C screening for age 18-79 10/06/2011 COVID-19 vaccine series ( season) 2022 04/27/2021, 08/01/2020, 07/12/2020 BMI (ht and wt on same day) for age 18+ 08/25/2023 08/24/2022, 05/12/2021, 02/28/2019, Additional history exists Depression screening for age 12+ 08/25/2023 08/24/2022, 06/14/2021, 05/12/2021, Additional history exists Influenza for age 9-49 12/11/2023 3, 12/23/2020, 01/15/2020, Additional history exists Pap test for age 21-65 01/07/2026 3, 01/07/2023, 11/15/2019, Additional history exists Tetanus booster 04/17/2030 04/17/2020, 10/13/2005 Tdap Completed 04/17/2020, 10/13/2005 Pneumococcal series for age 6-64 Aged Out No longer eligible based on patient's age to complete this topic Procedures Procedure Name Priority Date/Time Associated Diagnosis Comments HPV THIN PREP Routine 01/07/2023 1:00 PM CDT from Last 3 Months or Most Recently Relevant to Health Maintenance Results * HPV HIGH RISK (01/07/2023 1:00 PM CDT) TYPE 16 Negative Negative 01/13/2023 11:10 AM CDT [facility] TYPE 18 Negative Negative 01/13/2023 11:10 AM CDT [facility] OTHER HIGH RISK TYPES Negative Negative 01/13/2023 11:10 AM CDT [facility] Other (Cervical) 01/07/2023 1:00 PM CDT 01/11/2023 10:39 AM CDT Narrative [facility] - 01/13/2023 11:10 AM CDT HPV types 16, 18, 31, 33, 35, 39, 45, 51, 52, 56, 58, 59, 66 and 68 DNA were undetectable or below the pre-set threshold. Methodology: Jose C Britton 4800 HPV Test Fani Vargas NP MICROBIOLOGY [facility] [address] [place] [address], from Last 3 Months or Most Recently Relevant to Health Maintenance Care Teams Slurry Mixer Relationship Specialty Start Date End Date [facility] [place] [address] [facility] - General 05/22/18
--- OUTSIDE RECORDS SUMMARY | 2023-08-26 12:39 | XMS_ITS | Clinical Summary ---
Author Name Unknown Organization [facility] Address [address] [place] [address]. [place] [address] Care Team Providers Care Tile And Marble Setter Name Role Phone Unavailable Primary Care Provider Unavailabl e Social History Tobacco Use Types Packs/Day Years Used Date Smoking Tobacco: Never Assessed Adolescent Education Answer Date Record ed Getting School Help Needed Not on file 01/01 Sex and Gender Information Value Date Recorded Sex Assigned at Not on file Gender Identity Not on file Sexual Orientation Not on file Plan of Treatment Health Maintenance Due Date Last Done Comments ADVANCE CARE PLANNING 1993 ANNUAL REVIEW OF HM ORDERS 1993 YEARLY PREVENTIVE VISIT 1993 PAP 2014 COVID-19 Vaccine ( season) 2022 04/27/2021, 08/01/2020, 07/12/2020 PHQ-2 (once per calendar year) 2023 INFLUENZA VACCINE (Season Ended) 2023 04/27/2022, 12/23/2020, 01/15/2020, Additional history exists DTAP/TDAP/TD IMMUNIZATION (9 - Td or Tdap) 09/08/2032 09/08/2022, 04/17/2020, 10/13/2005, Additional history exists IPV IMMUNIZATION Completed 10/27/1998, , 04/07/1994, Additional history exists HEPATITIS B IMMUNIZATION Completed 007, 10/13/2005, 11/13/2002 HEPATITIS C SCREENING Completed 06/14/2022, 023 HIV SCREENING Completed 06/14/2022, 04/27/2022 HPV IMMUNIZATION Aged Out No longer e ligible based on patient's age to complete this topic MENINGITIS IMMUNIZATION Aged Out No l onger eligible based on patient's age to complete this topic Pneumococcal Vaccine: Pediatrics (0 to 5 Years) and At-Risk Patients (6 to 64 Years) Aged Out No longer eligible based on patient's age to complete this topic RSV MONOCLONAL ANTIBODY Aged Out No l onger eligible based on patient's age to complete this topic Procedures Procedure Name Priority Date/Time Associated Diagnosis Comments ABSTRACT HIV Routine 06/14/2022 3:29 PM DATA MANAGEMENT HEPATITIS C (HIM EXTERNAL RESULT) Routine 06/14/2022 3:29 PM DATA MANAGEMENT from Last 3 Months or Most Recently Relevant to Health Maintenance Results * ABSTRACT HIV (06/14/2022 3:29 PM DATA MANAGEMENT) HIV 1&2 EXT Non-Reacti ve [facility] Blood 06/14/2022 3:29 PM [facility] - 06/14/2022 3:29 PM DATA MANAGEMENT [facility] LAB RESULT Provider Outside LAB - HIM EXTERNAL R ESULT Performing Organization Address City/[facility]/ZIP Co de Phone Number [address] [phone] * Hepatitis C (HIM External Result) (06/14/2022 3:29 PM DATA MANAGEMENT) Hep C HIM See Scanned [facility] 06/14/2022 3:29 PM [facility] - 06/14/2022 3:29 PM DATA MANAGEMENT [facility] LAB RESULT Provider Outside LAB - [facility] EXTERNAL R ESULT Performing Organization Address City/[facility]/[place] [address], [facility] [phone] from Last 3 Months or Most Recently Relevant to Health Maintenance
== END 2023-08-25 11:29 | disposition home or self-care (01) ==
LOC: NFLDREF 08-26 12:38
PROVIDERS: PCP Physician Assistant Medical; Referring Provider Physician Assistant Medical; Visit Provider Physician Assistant Medical
DX: F53.0 Postpartum depression (principal); F32.A Depression, unspecified; F41.9 Anxiety disorder, unspecified
CPT/HCPCS: 82306; 82728; 84443

== ENCOUNTER 2023-12-21 08:05 | Outpatient (CLI) | payer BC, SELFPAY | END 2023-12-21 08:06 | disposition home or self-care (01) | LOC: FRMREF 08:05 | PROVIDERS: PCP Physician Assistant Medical; Visit Provider Physician Assistant Medical | DX: R79.0 Abnormal level of blood mineral (principal) | CPT/HCPCS: 82728 ==

== ENCOUNTER 2024-07-26 14:49 | Outpatient (CLI) | payer BC, SELFPAY | END 2024-07-26 14:50 | disposition home or self-care (01) | LOC: NFLDREF 07-30 00:12 | PROVIDERS: PCP Physician Assistant Medical; Referring Provider Family Medicine; Visit Provider Obstetrics & Gynecology | DX: N39.46 Mixed incontinence (principal); R82.90 Unspecified abnormal findings in urine | CPT/HCPCS: 87086 ==

== ENCOUNTER 2024-08-09 11:03 | Outpatient (CLI) | payer BC, SELFPAY ==
--- NOTE | 2024-08-09 11:15 | CRLHL7_ITS ---
For Patients: As a result of the Century Cures Act, medical imaging exams and procedure reports are released immediately into your electronic medical record. You may view this report before your referring provider. If you have questions, please contact your health care provider. CLINICAL HISTORY: Pelvic pain, hx of right ovarian seromucinous cystadenoma TECHNIQUE: 2D tsai scale ultrasound. In addition color Doppler and spectral Doppler analysis was performed of the pelvis using a transabdominal and transvaginal approach. FINDINGS: On transvaginal imaging, the myometrium has a normal uniform echotexture. Uterus measures 7.8 x 4.6 x 6.4 cm the endometrial lining appears normal and measures 10.1 mm in thickness. The right ovary measures 3.6 x 1.6 x 1.9 cm in size and the left ovary measures 4.4 x 1.7 x 2.5 cm. The ovaries demonstrate normal arterial and venous blood flow on color Doppler and spectral Doppler analysis. There are no suspicious fluid collections within the cul-de-sac. Collapsing left ovarian cyst measures 2.1 x 2.1 x 1.7 cm. IMPRESSION: No suspicious findings regarding the right ovary. Incidental collapsing left ovarian cyst. Dictated by Landry Phan MD @ 08/09/2024 5:01:03 PM (Electronically Signed)
== END 2024-08-09 11:04 | disposition home or self-care (01) ==
LOC: US 11:03
PROVIDERS: PCP Physician Assistant Medical; Visit Provider Obstetrics & Gynecology
DX: R10.2 Pelvic and perineal pain (principal); N94.0 Mittelschmerz
CPT/HCPCS: 76830; 76856; 93976

== ENCOUNTER 2024-11-09 12:00 | Outpatient (RCR) | payer BC, SELFPAY | END 2025-02-13 08:15 | disposition home or self-care (01) | PROVIDERS: PCP Physician Assistant Medical; Visit Provider Family Medicine | DX: N81.4 Uterovaginal prolapse, unspecified (principal); K59.00 Constipation, unspecified; N39.46 Mixed incontinence; R10.20 Pelvic and perineal pain unspecified side; Z51.89 Encounter for other specified aftercare | CPT/HCPCS: 97110; 97112; 97140; 97161; 97535 ==